=== PATIENT | female | born 1930 | race Caucasian/White ===

== ENCOUNTER 2016-10-27 15:00 | Outpatient (RCR) | payer OTHER | END 2016-11-03 | disposition home or self-care (01) | LOC: PTY 15:00 | DX: M54.32 Sciatica, left side (principal); M54.31 Sciatica, right side; I10 Essential (primary) hypertension; E11.9 Type 2 diabetes mellitus without complications; M81.0 Age-related osteoporosis without current pathological fracture; Z91.81 History of falling; R42 Dizziness and giddiness; M75.41 Impingement syndrome of right shoulder; S46.811A Strain of other muscles, fascia and tendons at shoulder and upper arm level, right arm, initial encounter; X58.XXXA Exposure to other specified factors, initial encounter; Y93.9 Activity, unspecified; Y92.9 Unspecified place or not applicable | CPT/HCPCS: 97110; 97140; 97161; G0283 ==

== ENCOUNTER 2016-11-10 13:45 | Outpatient (RCR) | payer OTHER | END 2016-12-03 | disposition home or self-care (01) | LOC: PTY 13:45 | DX: M75.41 Impingement syndrome of right shoulder (principal); S46.811A Strain of other muscles, fascia and tendons at shoulder and upper arm level, right arm, initial encounter; X58.XXXA Exposure to other specified factors, initial encounter; Y92.9 Unspecified place or not applicable; Y99.8 Other external cause status | CPT/HCPCS: 97110; 97140; G0283 ==

== ENCOUNTER 2016-12-04 14:30 | Outpatient (RCR) | payer OTHER | END 2017-01-03 | disposition home or self-care (01) | LOC: PTY 14:30 | DX: M75.41 Impingement syndrome of right shoulder (principal); S46.811D Strain of other muscles, fascia and tendons at shoulder and upper arm level, right arm, subsequent encounter | CPT/HCPCS: 97110; 97140; G0283 ==

== ENCOUNTER 2017-03-28 14:21 | Outpatient (RCR) | payer OTHER | END 2017-04-05 | disposition home or self-care (01) | LOC: PTY 14:21 | DX: G62.9 Polyneuropathy, unspecified (principal); R26.89 Other abnormalities of gait and mobility; R42 Dizziness and giddiness; I10 Essential (primary) hypertension; E11.9 Type 2 diabetes mellitus without complications; M81.0 Age-related osteoporosis without current pathological fracture; M54.32 Sciatica, left side ==

== ENCOUNTER 2017-04-30 14:30 | Outpatient (RCR) | payer OTHER | END 2017-05-05 | disposition home or self-care (01) | LOC: PTY 14:30 | DX: G62.9 Polyneuropathy, unspecified (principal); I10 Essential (primary) hypertension; E11.9 Type 2 diabetes mellitus without complications; M81.0 Age-related osteoporosis without current pathological fracture; R26.89 Other abnormalities of gait and mobility ==

== ENCOUNTER 2017-06-04 14:30 | Outpatient (RCR) | payer OTHER | END 2017-06-05 | disposition home or self-care (01) | LOC: PTY 14:30 | DX: G62.9 Polyneuropathy, unspecified (principal); R26.89 Other abnormalities of gait and mobility ==

== ENCOUNTER 2017-07-04 14:24 | Outpatient (RCR) | payer OTHER | END 2017-07-05 | disposition home or self-care (01) | LOC: PTY 14:24 | DX: G62.9 Polyneuropathy, unspecified (principal); R26.89 Other abnormalities of gait and mobility ==

== ENCOUNTER 2017-07-11 14:18 | Outpatient (RCR) | payer OTHER | END 2017-08-05 | disposition home or self-care (01) | LOC: PTY 14:18 | DX: G62.9 Polyneuropathy, unspecified (principal); R26.89 Other abnormalities of gait and mobility ==